=== PATIENT | female | born 1990 | race Caucasian/White ===

== ENCOUNTER 2017-10-04 09:36 | Emergency (ER) | payer BC ==
--- NOTE | 2017-10-04 10:06 | UC ---
UC General HPI - History of Current Complaint Stated Complaint: FATIGUE,LOSS OF APPETITE, HEADAHCE Time Seen by Provider: 10/04/17 10:05 Hx Obtained From: Patient Discharge - Discharge Plan Referrals: No Primary Care Phys,NOPCP [Primary Care Provider] -
--- NOTE | 2017-10-04 11:01 | UC ---
Etta Oro Gabriel, scribed for Steven Lindsay MD on 10/04/17 at 1036 . General HPI - HPI Summary HPI Summary: This patient is a 27 year old F presenting to [facility] [place] with a chief complaint of a general illness that began 5 days ago. Pt states it began with nausea and fatigue but since then it has progressed into weakness, dizziness, light headedness, and decreased appetite. The patient rates the pain 1/10 in severity. Patient reports MUSA, general malaise, and mild diarrhea. Patient denies ear pain, rash, rhinorrhea, sore throat, neck pain, back pain, myalgia, cough, chest congestion, abnormal vaginal discharge, and urinary sx. LNMP 2 weeks ago. - History of Current Complaint Chief Complaint: UCGeneralIllness Stated Complaint: FATIGUE,LOSS OF APPETITE, HEADAHCE Time Seen by Provider: 10/04/17 10:05 Hx Obtained From: Patient Hx Last Menstrual Period: 09/21/17 Onset/Duration: Lasting Days, Still Present Timing: Constant Onset Severity: Mild Current Severity: None Pain Intensity: 1 Associated Signs & Symptoms: Positive: Dizziness, Diarrhea, Nausea - Allergy/Home Medications Allergies/Adverse Reactions: Allergies Allergy/AdvReac Type Severity Reaction Status Date / Time No Known Allergies Allergy Verified 10/04/17 10:23 PMH/Surg Hx/FS Hx/Imm Hx Previously Healthy: Yes Other History Of: Negative For: Hepatitis C, Anticoagulant Therapy - Surgical History Surgical History: Yes Surgery Procedure, Year, and Place: acl repair r knee - Family History Known Family History: Positive: Hypertension - Social History Occupation: Employed Full-time Lives: With Family Alcohol Use: Occasionally Substance Use Type: Marijuana Smoking Status (MU): Never Smoked Tobacco Review of Systems Constitutional: Fatigue, Other - general malaise and decreased appetite Gastrointestinal: Diarrhea, Nausea Neurological: Headache, Weakness, Other - dizziness, light headedness All Other Systems Reviewed And Are Negative: Yes Physical Exam - Summary Physical Exam Summary: General: well-appearing, no pain distress Skin: warm, color reflects adequate perfusion, dry Head: normal Eyes: EOMI, ANTON ENT: normal Neck: supple, nontender Respiratory: CTA, breath sounds present Cardiovascular: RRR Abdomen: soft, nontender Bowel: present Musculoskeletal: normal, strength/ROM intact Neurological: sensory/motor intact, A&O x3 Psychological: affect/mood appropriate Triage Information Reviewed: Yes Vital Signs: Initial Vital Signs Temp 98 F 10/04/17 10:20 Pulse 71 10/04/17 10:20 Resp 20 10/04/17 10:20 BP 108/68 10/04/17 10:20 Pulse Ox 99 10/04/17 10:20 Vital Signs Reviewed: Yes Course/Dx - Course Course Of Treatment: Medications reviewed. Allergies noted. NO FOCAL AREA OF INFECTION. WILL TREAT SX NOW; F/U PMD IF NOT IMPROVED. RETURN FOR RECHECK IF WORSE. - Differential Dx - Multi-Symptom Provider Diagnoses: FATIGUE. NAUSEA Discharge - Sign-Out/Discharge Documenting (check all that apply): Discharge/Admit/Transfer - Discharge Plan Condition: Stable Disposition: HOME Prescriptions: Ondansetron ODT TAB* [Zofran 4 MG Odt TAB*] 4 mg PO Q6H PRN #10 tab.odt PRN Reason: Nausea Patient Education Materials: Fatigue (ED) Referrals: [facility] [place] [facility] [Outside] Additional Instructions: FOLLOW UP WITH YOUR DOCTOR. GET RECHECKED FOR ANY WORSENING OF YOUR CONDITION OR QUESTIONS OR CONCERNS. - Billing Disposition and Condition Condition: STABLE Disposition: Home The documentation as recorded by the Etta hirsch Gabriel accurately reflects the service I personally performed and the decisions made by me, Steven Lindsay MD.
== END 2017-10-04 10:51 | disposition home or self-care (01) ==
LOC: UCEAST 09:36
DX: R53.83 Other fatigue (principal); R11.0 Nausea
CPT/HCPCS: 81003; 84702; 99202; G0463